=== PATIENT | female | born 2000 | race Caucasian/White ===

== ENCOUNTER 2022-12-20 21:19 | Emergency (ER) | payer OTHER ==
[~2022-12-20] VITALS: Ht 157.4 cm; Wt 52.2 kg
== END 2022-12-20 23:25 | disposition left against medical advice (07) ==
LOC: ED 21:19
DX: S69.91XA Unspecified injury of right wrist, hand and finger(s), initial encounter (principal); Z53.21 Procedure and treatment not carried out due to patient leaving prior to being seen by health care provider; W22.01XA Walked into wall, initial encounter; Y93.89 Activity, other specified; Y92.89 Other specified places as the place of occurrence of the external cause; Y99.8 Other external cause status